=== PATIENT | male | born 1985 | race Caucasian/White ===

== ENCOUNTER 2016-08-07 07:13 | Emergency (ER) | payer SELFPAY ==
[~2016-08-07] VITALS: Ht 180.3 cm; Wt 114.6 kg
[~2016-08-07 07:13] MED LIST: FLV1 PO; MULT-513 PO; THM100 PO; VTMB12 PO
[2016-08-07 07:16] VITALS: TEMP 36.8; Ht 180.3 cm; Wt 114.6 kg
[2016-08-07] MEDS ORDERED: IBUP-1050 PO (07:33)
--- NOTE | 2016-08-07 07:35 | EMERGENCY ROOM VISIT NOTE ---
History Report prepared by Marcia: Kota Valdez Under the Supervision of: Dr. Dc Roy M.D. First contact with patient: 07:21 Chief Complaint: ABDOMINAL PAIN Stated Complaint: ABD PAIN,ALCOHOL WITHDRAWN Nursing Triage Summary: Abd pain, n/v/d. "My drinking has accelerated lately. I stopped about 12 hours ago and I feel that I am withdrawing from alcohol and it is getting worse." Per the pt. History of Present Illness The patient is a 31 year old male who presents to the Emergency Room with complaints of constant abdominal pain. The pain is rated 2/10 in severity, and is worsened when he dry heaves. The patient also complains of nausea, vomiting, and diarrhea. The patient has a history of alcoholism. He feels that nausea & vomiting are withdrawal symptoms that he experiences until he starts drinking again. The patient drinks about 1L of rum per day. His last drink was at 1900 last night. The patient mostly drinks to cope with depression. He notes that he has been progressively drinking more lately. The patient would like to stop drinking. He tried outpatient counseling last year which did not help him. He has never gone to AA meetings. The patient does not have health insurance. He denies other drug use. The patient has been gaining weight. He mostly eats unhealthy foods. Source of History: patient Position: abdomen Symptom Intensity: 2/10 Timing: constant Modifying Factors (Worsening): other (dry heaving) Associated Symptoms: + diarrhea, + nausea, + vomiting Review of Systems All systems have been listed, reviewed, and are negative other than those previously mentioned. Please see Additional Medical History Sheet. Past Medical & Surgical Medical Problems: (1) Alcohol abuse (2) Depression (3) HTN (hypertension) (4) Myopathy (5) Neuropathy (6) Neuropathy Family History Cancer Social History Smoking Status: Current Some Day Smoker Alcohol Use: heavy Drug Use: none Marital Status: single Housing Status: lives with friends Occupation Status: employed Current/Historical Medications Scheduled Multivitamins/Minerals (Mvi With Minerals), 1 TAB PO DAILY Scheduled PRN Ibuprofen (Advil), 200 MG PO DAILY PRN for Headache Lorazepam (Ativan), 1 MG PO Q4-6h PRN for Anxiety/Agitation Allergies Coded Allergies: No Known Allergies (Unverified , 08/07/16) Physical Exam Vital Signs Date Time Temp Pulse Resp B/P Pulse Ox O2 Delivery O2 Flow Rate FiO2 08/07/16 14:30 110 17 151/98 95 Room Air 08/07/16 12:40 103 20 147/93 95 Room Air 08/07/16 11:19 105 18 143/95 96 Room Air 08/07/16 08:51 101 16 146/100 96 Room Air 08/07/16 07:16 36.8 110 20 154/102 98 Room Air Physical Exam GENERAL: Patient awake, alert, oriented x 3. Patient follows commands. Patient does not appear toxic. Patient is adequately hydrated and well- nourished. SKIN: No erythema, pallor, cyanosis or rash HEENT: Normal head, pupils equal, reactive to light and accommodation. Oral cavity and posterior pharynx appear normal. Neck: Without adenopathy, no neck vein distention. LUNGS: Clear to auscultation. No wheezes, no rales, no rhonchi. HEART: No murmurs. No gallops. No rubs ABDOMEN: Obese. Hepatomegaly with the liver 8 cm below the costal margin. The rest of the abdomen is nontender. EXTREMITIES: No signs of trauma. No pedal or pretibial edema. No calf or thigh tenderness. NEUROLOGIC: Cranial nerves II-XII within normal limits. No gross motor sensory function deficits. Medical Decision & Procedures ER Provider Diagnostic Interpretation: X ray results are stated below per my interpretation and the radiologist's interpretation. CHEST 2 VIEWS ROUTINE CLINICAL HISTORY: Alcohol withdrawal. Pain, radiating to the abdomen. COMPARISON STUDY: 10/02/2015 FINDINGS: The heart is normal in size. There is mild superior mediastinal soft tissue prominence similar to the prior study. There is no lobar consolidation. There is left basilar atelectatic change. There is no failure. There are no pleural effusions.[ No free intraperitoneal air is visualized. IMPRESSION: 1. Left basilar atelectatic change 2. Stable mild soft tissue prominence of superior mediastinum Electronically signed by: Lito Garcia M.D. 08/07/2016 9:11 AM Dictated Date/Time: 08/07/2016 9:10 AM Laboratory Results 08/07/16 07:51 Red Blood Count 4.82, Mean Corpuscular Volume 98.3, Mean Corpuscular Hemoglobin 35.5, Mean Corpuscular Hemoglobin Concent 36.1, Mean Platelet Volume 9.8, Neutrophils (%) (Auto) 73.6, Lymphocytes (%) (Auto) 17.7, Monocytes (%) (Auto) 7.4, Eosinophils (%) (Auto) 0.4, Basophils (%) (Auto) 0.5, Neutrophils # (Auto) 8.32, Lymphocytes # (Auto) 2.01, Monocytes # (Auto) 0.84, Eosinophils # (Auto) 0.05, Basophils # (Auto) 0.06 08/07/16 07:51 Test 08/07/16 07:51 08/07/16 09:25 White Blood Count 11.33 K/uL (4.8-10.8) Red Blood Count 4.82 M/uL (4.7-6.1) Hemoglobin 17.1 g/dL (14.0-18.0) Hematocrit 47.4 % (42-52) Mean Corpuscular Volume 98.3 fL (80-100) Mean Corpuscular Hemoglobin 35.5 pg (25-34) Mean Corpuscular Hemoglobin Concent 36.1 g/dl (32-36) Platelet Count 187 K/uL (130-400) Mean Platelet Volume 9.8 fL (7.4-10.4) Neutrophils (%) (Auto) 73.6 % Lymphocytes (%) (Auto) 17.7 % Monocytes (%) (Auto) 7.4 % Eosinophils (%) (Auto) 0.4 % Basophils (%) (Auto) 0.5 % Neutrophils # (Auto) 8.32 K/uL (1.4-6.5) Lymphocytes # (Auto) 2.01 K/uL (1.2-3.4) Monocytes # (Auto) 0.84 K/uL (0.11-0.59) Eosinophils # (Auto) 0.05 K/uL (0-0.5) Basophils # (Auto) 0.06 K/uL (0-0.2) RDW Standard Deviation 45.3 fL (36.4-46.3) RDW Coefficient of Variation 12.6 % (11.5-14.5) Immature Granulocyte % (Auto) 0.4 % Immature Granulocyte # (Auto) 0.05 K/uL (0.00-0.02) Anion Gap 12.0 mmol/L (3-11) Est Creatinine Clear Calc Drug Dose 143.5 ml/min Estimated GFR () 121.6 Estimated GFR (Non- 104.9 BUN/Creatinine Ratio 17.1 (10-20) Calcium Level 9.2 mg/dl (8.5-10.1) Total Bilirubin 3.3 mg/dl (0.2-1) Direct Bilirubin 0.8 mg/dl (0-0.2) Aspartate Amino Transf (AST/SGOT) 164 U/L (15-37) Alanine Aminotransferase (ALT/SGPT) 127 U/L (12-78) Alkaline Phosphatase 78 U/L (45-117) Troponin I < 0.015 ng/ml (0-0.045) Total Protein 8.7 gm/dl (6.4-8.2) Albumin 4.1 gm/dl (3.4-5.0) Ethyl Alcohol mg/dL < 3.0 mg/dl (0-3) Urine Color ORANGE Urine Appearance SLIGHTLY CLOUDY (CLEAR) Urine pH (4.5-7.5) Urine Specific [place] 1.029 (1.000-1.030) Urine Protein POS (NEG) Urine Glucose (UA) (NEG) Urine Ketones (NEG) Urine Occult Blood (NEG) Urine Nitrite (NEG) Urine Bilirubin (NEG) Urine Urobilinogen (NEG) Urine Leukocyte Esterase (NEG) Urine RBC 0-4 /hpf (0-4) Urine WBC 5-10 /hpf (0-5) Urine Epithelial Cells 10-20 /lpf (0-5) Urine Bacteria 1+ (NEG) Urine Hyaline Casts 5-10 /lpf (0-5) Urine Mucus PRESENT (NONE PRSENT) Urine Opiates Screen NEG (NEG) Urine Methadone, Qualitative NEG (NEG) Urine Barbiturates NEG (NEG) Urine Phencyclidine (PCP) Level NEG (NEG) Ur Amphetamine/Methamphetamine NEG (NEG) MDMA (Ecstasy) Screen NEG (NEG) Urine Benzodiazepines Screen NEG (NEG) Urine Cocaine Metabolite NEG (NEG) Urine Marijuana (THC) NEG (NEG) Laboratory results as stated above per my review. ECG Indication: abdominal pain Rate (beats per minute): 94 Rhythm: normal sinus Findings: no acute ischemic change, no ectopy ED Course 0721: Past medical records reviewed. The patient was evaluated in room B11b. A complete history and physical examination was performed. 1051: Explained the elevated liver enzymes finding with the patient. 1258: A case maker spoke with the patient. She gave him information regarding rehabilitation.. 1405: Patient was not able to be taken into a rehab center today. He will be given Ativan to take home to help deal with withdrawal symptoms until he can get into a rehab center. 1420: Reevaluated the patient. I discussed today's findings with him. He verbalized agreement of the treatment plan. He was discharged home. Medical Decision I considered multiple diagnoses including alcoholism, alcohol withdrawal, pancreatitis, hepatitis, hepatomegaly, metabolic disorder. The patient is an alcoholic with elevated liver enzymes. He may be having early signs of withdrawal. The patient wants to quit drinking. Multiple labs were evaluated. Please see above. Our case maker attempted to get the patient admitted to rehabilitation hospital today but was unsuccessful. We have given the patient information to call on Tuesday for possible admission at that time. In the meantime he will be given a prescription for Ativan to take to prevent withdrawal. Patient understands that he must quit drinking. The patient has no history of seizures or DTs. Impression Primary Impression: Alcoholism Additional Impression: Alcohol withdrawal Scribe Attestation The scribe's documentation has been prepared under my direction and personally reviewed by me in its entirety. I confirm that the note above accurately reflects all work, treatment, procedures, and medical decision making performed by me. Departure Information Dispostion Home / Self-Care Prescriptions Lorazepam (ATIVAN) 1 Mg Tab 1 MG PO Q4-6h Y for Anxiety/Agitation, #30 TAB Prov: Dc Roy M.D. 08/07/16 Referrals [facility] (PCP) Forms Call Back Authorization, HOME CARE DOCUMENTATION FORM, IMPORTANT VISIT INFORMATION, Work Instructions Patient Instructions ED Withdrawal Alcohol, My [facility] Additional Instructions NO ALCOHOL 1 mg of Ativan every 4-6 hours as needed for withdrawal symptoms. Off work for the next 2-3 days. Call Tuesday morning for admission to an inpatient rehabilitation program. Return here if your symptoms are worsening. Problem Qualifiers
[2016-08-07 08:04] LABS: BASO % 0.5 %; BASO ABS # 0.06 K/uL (0-0.2); COMPLETE YES; EOS % 0.4 %; HEMATOCRIT 47.4 % (42-52); IG% 0.4 %; LYMPH % 17.7 %; LYMPH ABS # 2.01 K/uL (1.2-3.4); MEAN CELL VOLUME 98.3 fL (80-100); MEAN CORPUSCULAR HEMOGLOBIN 35.5 pg (25-34); MEAN CORPUSCULAR HGB CONC 36.1 g/dl (32-36); MEAN PLATELET VOLUME 9.8 fL (7.4-10.4); MONO % 7.4 %; NEUT % 73.6 %; PLATELET COUNT 187 K/uL (130-400); RED BLOOD COUNT 4.82 M/uL (4.7-6.1); WHITE BLOOD COUNT 11.33 K/uL (4.8-10.8)
[2016-08-07 08:22] LABS: ALT/SGPT 127 U/L (12-78); BLOOD UREA NITROGEN 16 mg/dl (7-18); BUN/CREATININE RATIO 17.1 (10-20); CALCIUM 9.2 mg/dl (8.5-10.1); CARBON DIOXIDE 24 mmol/L (21-32); CHLORIDE 99 mmol/L (98-107); CREATININE 0.96 mg/dl (0.60-1.40); GLUCOSE 150 mg/dl (70-99); POTASSIUM 3.7 mmol/L (3.5-5.1); SODIUM 135 mmol/L (136-145)
[2016-08-07 08:27] LABS: ALKALINE PHOSPHATASE 78 U/L (45-117); AST/SGOT 164 U/L (15-37)
--- NOTE | 2016-08-07 09:13 | DIAGNOSTIC IMAGING REPORT ---
CHEST 2 VIEWS ROUTINE CLINICAL HISTORY: Alcohol withdrawal. Pain, radiating to the abdomen. COMPARISON STUDY: 10/02/2015 FINDINGS: The heart is normal in size. There is mild superior mediastinal soft tissue prominence similar to the prior study. There is no lobar consolidation. There is left basilar atelectatic change. There is no failure. There are no pleural effusions.[ No free intraperitoneal air is visualized. IMPRESSION: 1. Left basilar atelectatic change 2. Stable mild soft tissue prominence of superior mediastinum Electronically signed by: Lito Garcia M.D. 08/07/2016 9:11 AM Dictated Date/Time: 08/07/2016 9:10 AM
[2016-08-07 09:48] LABS: MANUAL MICROSCOPIC REQUIRED? YES; REVIEW REQ? NO; SULFASALICYLIC ACID POS (NEG); URINE APPEARANCE SLIGHTLY CLOUDY (CLEAR); URINE COLOR ORANGE; URINE SPECIFIC GRAVITY 1.029 (1.000-1.030)
[2016-08-07 09:50] LABS: URINE MUCUS PRESENT (NONE PRSENT)
[2016-08-07 09:51] LABS: URINE BACTERIA 1+ (NEG); URINE RBC 0-4 /hpf (0-4)
[2016-08-07 09:52] LABS: ZZUR CULT IF INDIC CLEAN CATCH YES
[2016-08-07 10:28] LABS: BENZODIAZEPINE, URINE NEG (NEG); COCAINE,URINE NEG (NEG); PHENCYCLIDINE, URINE NEG (NEG)
[2016-08-07] MEDS ORDERED: ATV/1 PO (14:20)
[2016-08-07 14:30] VITALS: BP 151/98; PULSE 110; O2SAT 95
--- NOTE | 2016-08-10 16:33 | Pharmacy Progress Note ---
ED Pharmacist Culture FollowUp Date of Service: Aug 10, 2016. Low CFU/mL E. faecalis in urine culture. UA with 10-20 epithelial cells. No urinary symptoms mentioned in ED provider note. LIkely contaminat - no antibiotics needed. Case discussed with Dr. Santamaria.
== END 2016-08-07 14:48 | disposition home or self-care (01) ==
LOC: C.EDB 07:15
DX: F10.230 Alcohol dependence with withdrawal, uncomplicated (principal); R10.9 Unspecified abdominal pain; R11.2 Nausea with vomiting, unspecified; R19.7 Diarrhea, unspecified; F32.9 Major depressive disorder, single episode, unspecified; I10 Essential (primary) hypertension; F17.200 Nicotine dependence, unspecified, uncomplicated; E66.9 Obesity, unspecified; R16.0 Hepatomegaly, not elsewhere classified